=== PATIENT | male | born 1950 | race American Indian/Alaskan Native ===

== ENCOUNTER 2016-09-19 06:20 | Day surgery (SDC) | payer MEDICARE ==
[~2016-09-19 06:20] MED LIST: ANCEF/STERILE WATER 2 GM/20 ML 2 GM/20 ML SYRINGE IV NR; NACL 0.9% 1000 ML 1,000 ML IV SCH; NACL BACTERIOSTATIC INFILTRATI ONE
[2016-09-19] MEDS ORDERED: XYLOCAINE MPF 2% ONE (07:12)
[2016-09-19] MEDS ORDERED: DIPRIVAN 10 MG/ML IV ONE (07:12)
[2016-09-19] MEDS ORDERED: DILAUDID ONE (07:12)
[2016-09-19] MEDS ORDERED: NACL ONE (07:19)
[2016-09-19] MEDS ORDERED: PROTAMINE SULFATE ONE (07:19)
[2016-09-19] MEDS ORDERED: PAPAVERINE ONE (07:19)
[2016-09-19] MEDS ORDERED: MARCAINE 0.5% 30 ML INFILTRATI ONE (07:19)
[2016-09-19] MEDS ORDERED: NACL 0.9% 250ML 250 ML ONE (07:20)
[2016-09-19] MEDS ORDERED: NACL 0.9% 1000 ML 1,000 ML ONE (07:20)
[2016-09-19] MEDS ORDERED: XYLOCAINE 1% MPF 5 mL ONE (07:20)
[2016-09-19] MEDS ORDERED: XYLOCAINE 1%/ EPI 1:100,000 INFILTRATI ONE ×2 (07:20→07:21)
[2016-09-19] MEDS ORDERED: HEPARIN 10,000 UNITS/10 ML ONE (07:20)
[2016-09-19] MEDS ORDERED: RIFADIN ONE (07:20)
[2016-09-19] MEDS ORDERED: NACL 0.9% 500 ML 500 ML ONE (07:20)
[2016-09-19] MEDS ORDERED: GELFOAM TP ONE (07:20)
[2016-09-19] MEDS ORDERED: THROMBIN (BOVINE) TP ONE (07:20)
[2016-09-19 07:29] LABS: Basophils % (Auto) 0.5 % (0.0-1.8); Eosinophils % (Auto) 3.7 % (0.0-4.3); Hemoglobin 10.4 gm/dl (11.8-15.2); Mean Corpuscular HGB Conc 33 % (32-34); Mean Corpuscular Hemoglobin 29 pg (28-32); Mean Corpuscular Volume 86 fl (84-94); Platelet Count 380 K/mm3 (140-440); Red Blood Count 3.63 M/mm3 (3.65-5.03); Red Cell Distribution Width 17.2 % (13.2-15.2)
[2016-09-19 07:45] LABS: BUN/Creatinine Ratio 3.48; Calcium 7.7 mg/dL (8.4-10.2); Chloride 90.8 mmol/L (98-107)
[2016-09-19 07:49] LABS: Potassium 2.9 mmol/L (3.6-5.0)
[2016-09-19] MEDS ORDERED: DILAUDID IV PRN (07:58)
[2016-09-19] MEDS ORDERED: ZOFRAN IV PRN (07:58)
[2016-09-19] MEDS ORDERED: PEPCID PO NR (08:00)
[2016-09-19] MEDS ORDERED: VERSED IV NR (08:00)
[2016-09-19] MEDS ORDERED: KCL 10MEQ/100ML 10 MEQ/100 ML BAG IV SCH (08:00)
--- NOTE | 2016-09-19 08:06 | Anesthesia Day of Surgery ---
Anesthesia Day of Surgery - Day of Surgery Patient Examined: Yes Patient H&P Reviewed: Yes Patient is NPO: Yes Beta Blockers: Yes
--- NOTE | 2016-09-19 08:07 | Admit Criteria Form ---
Admission Criteria Documentation: AMBULATORY SURGERY EXCEPTION CRITERIA Ambulatory Surgery Exception Criteria ( Place 'X' for any and all applicable criteria): Surgery or procedure performed on ambulatory basis may require inpatient stay for[A] ANY ONE of the following(1)(2)(3)(4)(5)(6)(7)(8)(9): [X] I. A preoperative situation, condition, or finding that warrants inpatient stay as indicated by ANY ONE of the following: [] a) Inpatient care needed because of severity of a disease or condition rather than the surgery (eg, severe cardiac or respiratory disease, severe infection) (15) (16 ) (17) (18) [] b) Emergent procedure (eg, angioplasty for acute ischemia)(19) [] c) Complex surgical approach or situation as indicated by ANY ONE of the following(3): [] i) Open approach needed instead of usual endoscopic, transcatheter, or other less invasive procedure [] ii) Difficult approach because of previous operation [] iii) Airway monitoring required after open neck procedures(20)(21) [] iv) Large mass requiring unusually extensive dissection [] v) Additional complicating feature requiring inpatient care (eg, drain management)(22(23): [X] d) Major surgery in a pt with high anesthetic risk as indicated by ANY ONE of the following (2)(3)(5)(7)(8): [X] i) ASA risk class III or higher (severe systemic disease impairing function) [D] [] ii) Advanced age (eg, older than 85 years)(14)(24) [] iii) Symptomatic heart failure(25) [] iv) Symptomatic asthma or COPD(8)(21) [] v) Morbid obesity with hemodynamic or respiratory problems(20)( 21)(26)(27) [] vi) Obstructive sleep apnea(20)(21) [] vii) Former premature infants who are younger than 60 weeks [] viii) High risk for severe postoperative abnormalities (eg, severe postoperative hypocalcemia after parathyroidectomy for severe hyperparathyroidism)(27)( 28) [] ix) Unstable angina(25) [] e) Drug-related risk requiring inpatient stay as indicated by ANY ONE of the following(5)(10)(14)(32)(33) [] i) Procedure requires discontinuing drugs or other therapy (eg , antiarrhythmic medication, antiseizure medication), which necessitates inpatient observation or treatment.(18)(31) [] ii) Major surgery and high risk drug use as indicated by ANY ONE of the following: [] 1) Active abuse of cocaine or similar drug [] 2) Monoamine oxidase inhibitor use [] 3) Other drug identified as posing risk [] f) Inadequate outpatient care situation as indicated by ANY ONE of the following(5)(10)(14)(32)(33) [] i) Patient lives remote from medical facility and procedure has urgent complication potential, and temporary nearby residence cannot be arranged [] ii) Patient will have postprocedure incapacitation and inadequate assistance at home, or alternative level of care cannot be arranged. [] iii) Patient will have long general anesthesia or procedure side effect resolution time, and competent person to stay with patient on first postoperative night at home or alternative level of care cannot be arranged. []iv) Other inadequate outpatient situation that cannot be handled by other means [] II. A perioperative event, condition, or finding that warrants inpatient stay as indicated by ANY ONE of the following (1)(2)(3): [] a) Inadequate physiologic recovery: cardiovascular, respiratory, or hemodynamic status not normal or near preoperative baseline(18) [] b) Hemodynamic instability [] c) Patient not alert with near normal or baseline mental status [] d) Temperature not normal or as expected and not appropriate for outpatient treatment of condition [] e) Ambulatory or appropriate activity level status not yet achieved post procedure [E](34)(35)(36) [] f) Operative site not appropriate (eg, unexpected or excessive drainage or bleeding) [] g) Postoperative effects not resolved or adequately managed (eg, significant pain or vomiting not appropriate for outpatient or next level of care)(10)(12) [] h) Complicating features requiring inpatient care as indicated by ANY ONE of the following(37): [] i) Severe complications of procedure (eg, bowel injury, airway compromise, vascular injury,severe hemorrhage) [] ii) Extensive (eg, dissection far beyond usual scope of procedure ) or prolonged (eg, 120 minutes beyond usual) surgery needed requiring inpatient postoperative care [] iii) Conversion to an open or complex procedure that requires inpatient care (eg, open vs laparoscopic cholecystectomy, abdominal vs vaginal hysterectomy)(38) [] iv) Comorbid condition or test result identified during or post procedure that requires inpatient care (7) [] v) Malignant hyperthermia(30) [] vi) Other complicating feature requiring inpatient care(22)(23) Inpatient stay may be needed until ALL of the following are present (1)(2)(3)(4) (5)(6)(10)(14)(33)(40): []a) Physiologic recovery: cardiovascular, respiratory, and hemodynamic status normal or near preoperative baseline []b) Hemodynamic stability []c) Patient alert, with near normal or baseline mental status []d) Temperature appropriate: patient afebrile or temperature appropriate for outpt treatment of condition []e) Activity level appropriate: ambulatory or appropriate activity level post procedure []f) Operative site appropriate as indicated by ALL of the following: []i) Site dry or with expected drainage []ii) Any blood noted is as expected for procedure. []g) Postoperative effects resolved or managed as indicated by ALL of the following: []i) Pain management appropriate for outpatient (or next level of) care(10) []ii) Minimal nausea and vomiting: if present, successfully treated with oral medication(12) []iii) Headache, dizziness, or drowsiness (if present) are mild. []h) Voiding status acceptable as indicated by ANY ONE of the following: []i) Voiding spontaneously []ii) No voiding but instructions given for follow-up in 6 to 8 hours []iii) Urinary catheter in place, and instructions given for follow-up []i) Complicating features requiring inpatient care manageable at a lower level of care(37) []j) Comorbid conditions manageable at a lower level of care(37) The original [employer] content created by [employer] has been revised. The portions of the content which have been revised are identified through the use of italic text or in bold, and [email or web address] has neither reviewed nor approved the modified material. All other unmodified content is copyright [employer]. Please see references footnoted in the original [employer] edition 2016
--- NOTE | 2016-09-19 08:07 | Anesthesia Consultation ---
Anesthesia Consult and Med Hx Date of service: 09/19/16 - Airway Anesthetic Teeth Evaluation: Dentures ROM Head & Neck: Adequate Mental/Hyoid Distance: Adequate Mallampati Class: Class II Intubation Access Assessment: Probably Good - Pulmonary Exam CTA: Yes - Cardiac Exam Cardiac Exam: RRR - Pre-Operative Health Status ASA Pre-Surgery Classification: ASA3 Proposed Anesthetic Plan: General - Pulmonary Hx Smoking: Yes (former) Hx Asthma: No Hx Sleep Apnea: No - Cardiovascular System Hx Hypertension: Yes Hx Angina: No Hx Percutaneous Transluminal Coronary Angioplasty (PTCA): Yes (stent x 1) - Central Nervous System Hx Seizures: No CVA: No Hx Psychiatric Problems: No - Endocrine Hx Renal Disease: Yes (on peritoneal dialysis, last dialysis last night) Hx End Stage Renal Disease: Yes Hx Liver Disease: No Hx Hypothyroidism: No - Hematic Hx Anemia: Yes - Other Systems Hx Cancer: No Hx Obesity: Yes (BMI 38.4)
[2016-09-19] MEDS ORDERED: NEO SYNEPHRINE/NS Syringe(OR USE) IV ONE (08:23)
[2016-09-19] MEDS ORDERED: SUBLIMAZE ONE (08:46)
[2016-09-19] MEDS ORDERED: ZOFRAN ONE (08:58)
[2016-09-19] MEDS ORDERED: HEPARIN 10,000 UNITS/10 ML IV ONE (09:06)
[2016-09-19] MEDS ORDERED: MARCAINE 0.5% INFILTRATI ONE (09:07)
[2016-09-19] MEDS ORDERED: NACL 0.9% 500 ML IV ONE (09:07)
[2016-09-19] MEDS ORDERED: NACL 0.9% IR ONE (09:07)
--- NOTE | 2016-09-19 09:53 | Short Stay Summary ---
Short Stay Documentation Date of service: 09/19/16 Narrative H&P: See H&P - History H&P: obtained from office - Allergies and Medications Current Medications: Allergies No Known Allergies Allergy (Verified 09/09/16 17:28) NO CHANGE Home Medications Medication Instructions Recorded Confirmed Last Taken Type Allopurinol [Zyloprim] 100 mg PO QDAY 01/29/13 09/09/16 11/11/15 History Calcitriol [Rocaltrol] 0.5 mcg PO TID 01/29/13 09/09/16 11/11/15 History AtorvaSTATin [Lipitor] 40 mg PO QHS #30 tablet 08/03/15 09/09/16 11/11/15 Rx Calcium Acetate [Phoslo] 1,334 mg PO TIDWM 08/03/15 09/09/16 11/11/15 History Clopidogrel [Plavix] 75 mg PO QDAY #30 tablet 08/03/15 09/09/16 11/11/15 Rx Furosemide [Lasix TAB] 40 mg PO BID 08/03/15 09/09/16 11/11/15 History ISOSORBIDE MONOnitrate [Imdur ER] 30 mg PO QDAY #30 tablet 08/03/15 09/09/16 Rx Sensipar 60 mg PO DAILY 08/03/15 09/09/16 11/11/15 History hydrALAZINE [Apresoline TAB] 100 mg PO TID 08/24/15 09/09/16 11/11/15 History Potassium Chloride [K-Dur] 20 meq PO QDAY 11/11/15 09/09/16 11/11/15 History Metoprolol [Lopressor TAB] 100 mg PO QDAY 09/09/16 09/09/16 Unknown History amLODIPine [Norvasc] 10 mg PO DAILY 09/09/16 09/09/16 Unknown History Active Medications Famotidine (Pepcid) 20 mg PO PREOP NR Stop: 09/19/16 21:00 Last Admin: 09/19/16 07:38 Dose: 20 mg Hydromorphone HCl (Dilaudid) 0.5 mg IV Q10MIN PRN PRN Reason: Pain , Severe (7-10) Stop: 09/19/16 16:00 Cefazolin Sodium (Ancef/Sterile Water 2 Gm/20 Ml) 2 gm in 20 mls @ 80 mls/hr IV PREOP NR PRN Reason: Protocol Stop: 09/19/16 23:59 Sodium Chloride (Nacl 0.9% 1000 Ml) 1,000 mls @ 42 mls/hr IV DIRECT JIL Last Admin: 09/19/16 07:00 Dose: 42 mls/hr Potassium Chloride (Kcl 10meq/100ml) 10 meq in 100 mls @ 100 mls/hr IV Q1H JIL Stop: 09/19/16 09:59 Last Admin: 09/19/16 08:17 Dose: 100 mls/hr Midazolam HCl (Versed) 2 mg IV PREOP NR Stop: 09/19/16 23:59 Last Admin: 09/19/16 07:39 Dose: 2 mg Ondansetron HCl (Zofran) 4 mg IV ONCE PRN PRN Reason: Nausea And Vomiting Stop: 09/19/16 16:00 - Brief post op/procedure progress note Date of procedure: 09/19/16 Pre-op diagnosis: End-Stage Renal Disease Post-op diagnosis: same Procedure: Creation of Right Brachiobasilic Arteriovenous Fistula Anesthesia: SAVANNA Surgeon: SINCERE CATHERINE Estimated blood loss: minimal Pathology: none Condition: stable - Disposition Condition at discharge: Good Disposition: DISCHARGED TO HOME OR SELFCARE Short Stay Discharge Plan Activity: other (no heavy lifting with right arm) Wound: open to air, keep clean and dry, other (okay to wash the wound with soap and water but do not soak in water) Follow up with: SINCERE CATHERINE MD [Staff Physician] - 14 Days Prescriptions: HYDROcodone/APAP 7.5-325 [[place] 7.5/325] 1 each PO Q6HR PRN #50 tablet PRN Reason: Pain
--- NOTE | 2016-09-19 09:58 | Operative Report ---
Operative Report Operative Report: Date of procedure: 09/19/2016 Pre-operative diagnosis: End-stage Renal Disease Post-operative diagnosis: End-stage Renal Disease Procedure(s): Creation of Right Brachial Artery to Basilic Arteriovenous Fistula Surgeon: Americo Hatfield MD Automatic Chief: None Anesthesia: Gen. Endotracheal Anesthesia EBL: Minimal Counts: Correct Complications: None Condition: Stable Findings: Successful creation of right arm AV fistula with excellent thrill and palpable radial pulse at the end of case. Specimen: None Indication: The patient is 65-year-old male with a history of gestational disease currently on hemodialysis through a right internal jugular permacath. He had previous creation of a right brachiocephalic AV fistula that failed and is in need of long-term access. His vein mapping demonstrated that his right basilic vein was adequate for creation of fistula. He was given the risks, benefits, and alternative procedures and consented to procedure. Description of Procedure: The patient was brought to the operating room and laid in supine position after general endotracheal anesthesia was administered the patient was prepped and draped in normal sterile fashion. After anesthetizing the skin a transverse incision was created just below the antecubital crease. Dissection was carried down to the the basilic vein using sharp dissection. The vein was dissected out both proximally and distally and suture ligated and divided distally. I then ran a 3 Vicki proximally in the vein, to ensure patency of the vein. I then flushed the vein with heparinized saline and controlled flow with a bulldog clamp. I then dissected out the brachial artery however upon dissecting down I discovered that the arterial anastomosis of the previous fistula as well as approximately 4 cm of the vein distal to the anastomoses were patent. I decided to use this portion of the vein as outflow. I suture ligated and divided the cephalic vein and controlled the inflow with a DeBakey clamp. I spliced the basilic vein as well as the cephalic vein and I created an end to end anastomosis between the basilic vein and cephalic AV fistula using two 6-0 Prolenes in running fashion. Prior to completing the anastomosis I flushed the inflow and then I completed the anastomosis and removed all vessel loops allowing flow into the fistula which had an excellent thrill. I achieved hemostasis with a combination of direct pressure and electrocautery. Once hemostasis was achieved I anesthetized the wound with Marcaine. I closed the wound in 2 layers using 3-0 Vicryl in a running fashion to close the deep dermal layer and 4-0 Monocryl in a running fashion in the subcuticular layer. I dressed the wound with Surgicel. The patient tolerated the procedure well, all sponge needle and instrument counts were correct. The patient was taken to recovery in stable condition.
--- NOTE | 2016-09-19 10:21 | Post Anesthesia Evaluation ---
- Post Anesthesia Evaluation Patient Participated: Yes Airway Patent: Yes Stable Respiratory Function: Yes Nausea/Vomiting: No Temp > 96.8F: Yes Pain Manageable: Yes Adequeate Hydration: Yes Anesthesia Complications: No Block Receding Appropriately: Not Applicable Patient on Ventilator: No
[2016-09-19 15:09] VITALS: BP 134/69
== END 2016-09-19 14:35 | disposition home or self-care (01) ==
LOC: OR 06:20
PROVIDERS: ATTEND Surgery Vascular Surgery
DX: I12.0 Hypertensive chronic kidney disease with stage 5 chronic kidney disease or end stage renal disease (principal); N18.6 End stage renal disease; D64.9 Anemia, unspecified; E66.9 Obesity, unspecified; Z68.38 Body mass index [BMI] 38.0-38.9, adult; Z95.5 Presence of coronary angioplasty implant and graft; Z99.2 Dependence on renal dialysis; Z79.899 Other long term (current) drug therapy; Z87.891 Personal history of nicotine dependence
CPT/HCPCS: 36415; 36819; 80048; 84132; 85025; A4649; C1757; J0690; J1170; J1644; J2250; J2370; J2405; J2704; J3010; J3480; J7030; J7040; J7050; J2440; J2720; J3490

== ENCOUNTER 2016-12-19 07:08 | Day surgery (SDC) | payer MEDICARE ==
[~2016-12-19 07:08] MED LIST changes: +NEO SYNEPHRINE/NS Syringe(OR USE) IV ONE
[2016-12-19] MEDS ORDERED: NACL 0.9% 500 ML 500 ML ONE (07:42)
[2016-12-19] MEDS ORDERED: HEPARIN 10,000 UNITS/10 ML ONE (07:42)
[2016-12-19] MEDS ORDERED: RIFADIN ONE (07:42)
--- NOTE | 2016-12-19 07:48 | Anesthesia Consultation ---
Anesthesia Consult and Med Hx Date of service: 12/19/16 - Airway Anesthetic Teeth Evaluation: Good, Dentures (upper and lower) ROM Head & Neck: Adequate Mental/Hyoid Distance: Adequate Mallampati Class: Class II Intubation Access Assessment: Probably Good - Pulmonary Exam CTA: Yes - Cardiac Exam Cardiac Exam: RRR - Pre-Operative Health Status ASA Pre-Surgery Classification: ASA3 Proposed Anesthetic Plan: General - Pulmonary Hx Smoking: Yes (former, over 45 years ago. Age [age].) Hx Asthma: No Hx Sleep Apnea: No - Cardiovascular System Hx Hypertension: Yes Hx Angina: No Hx Percutaneous Transluminal Coronary Angioplasty (PTCA): Yes (stent x 1) - Central Nervous System Hx Seizures: No CVA: No Hx Psychiatric Problems: No - Endocrine Hx Renal Disease: Yes (on peritoneal dialysis, last dialysis last night) Hx End Stage Renal Disease: Yes Hx Liver Disease: No Hx Hypothyroidism: No - Hematic Hx Anemia: Yes - Other Systems Hx Cancer: No Hx Obesity: Yes (BMI 38.4) - Additional Comments Anesthesia Medical History Comments: Gout. Ptn has an infection in the peritoneal dialysis catheter, on abx.
--- NOTE | 2016-12-19 07:48 | Anesthesia Day of Surgery ---
Anesthesia Day of Surgery - Day of Surgery Patient Examined: Yes Patient H&P Reviewed: Yes Patient is NPO: Yes
[2016-12-19 08:08] LABS: Basophils % (Auto) 1.1 % (0.0-1.8); Eosinophils % (Auto) 4.7 % (0.0-4.3); Hematocrit 34.9 % (35.5-45.6); Hemoglobin 11.3 gm/dl (11.8-15.2); Mean Corpuscular HGB Conc 32 % (32-34); Mean Corpuscular Hemoglobin 28 pg (28-32); Mean Corpuscular Volume 85 fl (84-94); Platelet Count 468 K/mm3 (140-440); Red Blood Count 4.09 M/mm3 (3.65-5.03); Red Cell Distribution Width 17.2 % (13.2-15.2); White Blood Count 7.9 K/mm3 (4.5-11.0)
[2016-12-19 08:21] LABS: BUN/Creatinine Ratio 2.83; Calcium 7.9 mg/dL (8.4-10.2); Chloride 94.5 mmol/L (98-107); Potassium 3.1 mmol/L (3.6-5.0)
[2016-12-19] MEDS ORDERED: VERSED IV NR (09:00)
[2016-12-19] MEDS ORDERED: PEPCID PO NR (09:00)
[2016-12-19] MEDS ORDERED: MARCAINE 0.5% INFILTRATI ONE ×4 (09:22→10:34)
[2016-12-19] MEDS ORDERED: SUBLIMAZE ONE (09:22)
[2016-12-19] MEDS ORDERED: ePHEDrine SULFATE ONE (09:28)
[2016-12-19] MEDS ORDERED: DIPRIVAN 10 MG/ML IV ONE (09:32)
[2016-12-19] MEDS ORDERED: XYLOCAINE MPF 2% ONE (09:32)
[2016-12-19] MEDS ORDERED: DILAUDID ONE (09:32)
[2016-12-19] MEDS ORDERED: NACL 0.9% IR ONE (09:38)
[2016-12-19] MEDS ORDERED: HEPARIN 10,000 UNITS/10 ML 2,000 UNIT in NACL 0.9% 500 ML 500 ML IR ONE (09:39)
[2016-12-19] MEDS ORDERED: DILAUDID IV PRN (09:52)
[2016-12-19] MEDS ORDERED: PERCOCET 5/325 PO PRN (09:52)
--- NOTE | 2016-12-19 11:08 | Short Stay Summary ---
Short Stay Documentation Date of service: 12/19/16 Narrative H&P: See H&P - History H&P: obtained from office - Allergies and Medications Current Medications: Allergies No Known Allergies Allergy (Verified 09/09/16 17:28) NO CHANGE Home Medications Medication Instructions Recorded Confirmed Last Taken Type Allopurinol [Zyloprim] 100 mg PO QDAY 01/29/13 12/15/16 12/18/16 History Calcitriol [Rocaltrol] 0.5 mcg PO TID 01/29/13 12/15/16 12/18/16 History AtorvaSTATin [Lipitor] 40 mg PO QHS #30 tablet 08/03/15 12/15/16 12/18/16 Rx Calcium Acetate [Phoslo] 1,334 mg PO TIDWM 08/03/15 12/15/16 12/18/16 History Clopidogrel [Plavix] 75 mg PO QDAY #30 tablet 08/03/15 12/15/16 12/18/16 Rx Furosemide [Lasix TAB] 40 mg PO BID 08/03/15 12/15/16 12/18/16 History ISOSORBIDE MONOnitrate [Imdur ER] 30 mg PO QDAY #30 tablet 08/03/15 12/15/1608/01 Rx Sensipar 60 mg PO DAILY 08/03/15 12/15/16 12/18/16 History hydrALAZINE [Apresoline TAB] 100 mg PO TID 08/24/15 12/15/16 12/18/16 History Potassium Chloride [K-Dur] 20 meq PO QDAY 11/11/15 12/15/16 12/18/16 History Metoprolol [Lopressor TAB] 100 mg PO QDAY 09/09/16 12/15/16 12/18/16 History amLODIPine [Norvasc] 10 mg PO DAILY 09/09/16 12/15/16 12/18/16 History HYDROcodone/APAP 7.5-325 [[place] 1 each PO Q6HR PRN #50 tablet 09/19/16 12/15/16 12/18/16 Rx 7.5/325] Active Medications Famotidine (Pepcid) 20 mg PO PREOP NR Stop: 12/19/16 21:00 Last Admin: 12/19/16 08:47 Dose: 20 mg Hydromorphone HCl (Dilaudid) 0.5 mg IV Q10MIN PRN PRN Reason: Pain , Severe (7-10) Stop: 12/19/16 23:59 Cefazolin Sodium (Ancef/Sterile Water 2 Gm/20 Ml) 2 gm in 20 mls @ 80 mls/hr IV PREOP NR PRN Reason: Protocol Stop: 12/19/16 23:00 Sodium Chloride (Nacl 0.9% 1000 Ml) 1,000 mls @ 42 mls/hr IV DIRECT JIL Last Admin: 12/19/16 07:50 Dose: 42 mls/hr Midazolam HCl (Versed) 2 mg IV PREOP NR Stop: 12/19/16 23:59 Last Admin: 12/19/16 08:47 Dose: 2 mg Oxycodone/Acetaminophen (Percocet 5/325) 1 tab PO ONCE PRN PRN Reason: Pain, Moderate (4-6) Stop: 12/19/16 23:59 - Brief post op/procedure progress note Date of procedure: 12/19/16 Pre-op diagnosis: Complications of Dialysis Access Post-op diagnosis: same Procedure: Revision with elevation of Right Arm Brachiobasilic Fistula Anesthesia: SAVANNA Surgeon: SINCERE CATHERINE Estimated blood loss: minimal Pathology: none Condition: stable - Disposition Condition at discharge: Good Disposition: DC-01 TO HOME OR SELFCARE Short Stay Discharge Plan Activity: other (No heavy lifting with right arm) Wound: open to air, keep clean and dry, other (okay to wash the wound with soap and water but do not soak in water) Follow up with: SINCERE CATHERINE MD [Staff Physician] - 14 Days Prescriptions: HYDROcodone/APAP 7.5-325 [[place] 7.5/325] 1 each PO Q6HR PRN #60 tablet PRN Reason: Pain
--- NOTE | 2016-12-19 11:13 | Operative Report ---
Operative Report Operative Report: Date of procedure: 12/19/2016 Pre-operative diagnosis: Complications of Dialysis Access Post-operative diagnosis: Same Procedure(s): Revision with Elevation of Right Brachiobasilic AV Fistula Surgeon: Americo Hatfield MD Sewage Disposal Engineer: None Anesthesia: General Endotracheal Anesthesia EBL: Minimal Counts: Correct Complications: None Condition: Stable Findings: Successful elevation of left brachiobasilic fistula with excellent thrill. Specimen: None Indication: The patient is a 66-year-old male with a history of end-stage renal disease who is been on peritoneal dialysis since developing end-stage renal disease. He is multiple episodes of bacterial peritonitis requiring catheter exchange and antibiotics however it is felt that his current peritonitis is not responding to antibiotics that he requires removal of the catheter and initiation of hemodialysis. He had creation of a right arm brachial basilic arteriovenous fistula that is now in need of elevation. He was given the risk, benefits, and alternative procedures and consented to procedure. Description of Procedure: The patient was brought to the operating room and laid in supine position after general endotracheal anesthesia was achieved her right arm was prepped and draped in normal sterile fashion. A longitudinal incision was then created on the medial aspect of the arm centered over the fistula extending from the axillary crease to the antecubital crease. Sharp dissection was used to continue the dissection down to the fistula. The fistula was then dissected circumferentially and all side branches were suture ligated and divided. A Aria-Wick tunneler was then used to tunnel from the distal part of the incision towards the proximal portion of the incision and a lateral and slightly curved direction. The fistula was then marked on the anterior surface , the inflow was controlled with a DeBakey, clamp and the outflow was controlled with bulldog clamps. This vessel was then divided near the arterial inflow and secured to the Arai-Wick tunneler with 2-0 silk and then pulled retrograde through the tunnel. I flushed the venous outflow with heparinized saline to assure that there was no evidence of twist or kinks. I then performed an end-to-end anastomosis between the proximal and distal ends using two 6-0 Prolenes in running fashion. Prior to completing the anastomosis I flushed the arterial inflow of the fistula to ensure there was no clot or debris. I then completed the anastomosis and removed all clamps allowing flow through the fistula which had an excellent thrill. I achieved hemostasis in the wound with a combination of direct pressure and electrocautery. I then anesthetized the wound with Exparel and closed the wound in 2 layers using a 3- 0 Vicryl in running fashion in the deep dermal layer and a 4-0 Monocryl in running fashion in the subcuticular. I then dressed the wound with Surgicel. The patient tolerated the procedure well, all sponge needle and instrument counts were correct, the patient was taken to the recovery area in stable condition.
[2016-12-19 12:17] VITALS: BP 109/67
== END 2016-12-19 13:18 | disposition home or self-care (01) ==
LOC: OR 07:08
PROVIDERS: ATTEND Surgery Vascular Surgery
DX: T82.7XXA Infection and inflammatory reaction due to other cardiac and vascular devices, implants and grafts, initial encounter (principal); I12.0 Hypertensive chronic kidney disease with stage 5 chronic kidney disease or end stage renal disease; N18.6 End stage renal disease; D64.9 Anemia, unspecified; M10.9 Gout, unspecified; E66.9 Obesity, unspecified; Z68.38 Body mass index [BMI] 38.0-38.9, adult; Z79.01 Long term (current) use of anticoagulants; Z79.899 Other long term (current) drug therapy; Z99.2 Dependence on renal dialysis; Z98.890 Other specified postprocedural states; Z87.891 Personal history of nicotine dependence; Z95.5 Presence of coronary angioplasty implant and graft; Y83.2 Surgical operation with anastomosis, bypass or graft as the cause of abnormal reaction of the patient, or of later complication, without mention of misadventure at the time of the procedure
CPT/HCPCS: 36415; 36832; 80048; 85025; C1757; J0690; J1170; J1644; J2250; J2370; J2704; J3010; J7030; J7040; J3490